=== PATIENT | male | born 1955 | race Caucasian/White ===

== ENCOUNTER 2023-01-08 00:06 | Emergency (ER) | payer MEDICARE, OTHER, SELFPAY ==
[2023-01-08 00:08] VITALS: BP 162/100; PULSE 114; RESP 19; TEMP 37.1; O2SAT 97; BMI 30.1
--- NOTE | 2023-01-08 00:39 | RAD_ITS ---
EXAM: XR LEFT RIBS AND AP CHEST, 3 OR MORE VIEWS CLINICAL INDICATION: pain TECHNIQUE: Frontal and oblique views of the left ribs and frontal view of the chest. This report was created using [employer] report generation technology. COMPARISON: None. FINDINGS: LUNGS AND PLEURAL SPACES: No acute pulmonary infiltrates or pleural effusion. No pneumothorax. HEART: Heart size is upper normal with normal pulmonary vasculature. MEDIASTINUM: Central airways and mediastinal contour are unremarkable. BONES/JOINTS: Old/well-healed fracture of the anterior left sixth rib. Acute nondisplaced fracture of the anterolateral left fifth rib and sixth ribs, as noted on 2 of the oblique views. Lower thoracic degenerative spurring. VASCULATURE: The thoracic aorta is mildly elongated. RAD/Ribs Uni Min 3V w/PA Chest IMPRESSION: Acute left fifth and sixth rib fractures. No pneumothorax or hemothorax. Electronically Signed: Morteza Beverly MD at 1:34 EDT ,
[2023-01-08] MEDS: Lidocaine 5% Patch 1 PATCH TOPICAL (00:46)
--- NOTE | 2023-01-08 00:58 | EDS_ITS ---
HPI HPI - Fall History of Present Illness Chief Complaint: Fall Narrative Narrative: 67-year-old male presenting with left rib pain. Patient states he was standing on a stepstool trying to change a light and fell injuring his left ribs. He states that he is having spasms in the ribs. He denies shortness of breath. Patient states he does not use analgesia anymore. He does not note any bruising. He does not think he broke any ribs. PFSH PFSH Medical History no medical history Home Medications lidocaine 5 % topical patch 1 patch topical DAILY #15 ea 01/08/23 [Rx Last Taken Unknown] loratadine 10 mg tablet (Claritin) 10 mg PO DAILY 01/08/23 [History Last Taken Unknown] Allergy/AdvReac Type Severity Reaction Status Date / Time pollen extracts [pollens] Allergy Other Verified 01/08/23 00:11 Social History Smoking Status: Never smoker ROS ROS ED Constitutional Constitutional ED: Denies chills, fever(s) or sweats Eyes Eyes: Denies blurry vision or change in vision ENT ENT ED: Denies ear pain or sore throat Cardiovascular Cardiovascular: Reports other; Denies chest pain, palpitations or racing heartbeat Respiratory/Chest Respiratory/Chest: Reports other Details: Left rib pain ; Denies cough, dyspnea or sputum Gastrointestinal Gastrointestinal: Denies abdominal pain, constipation, diarrhea, nausea or vom iting Genitourinary Genitourinary ED: Denies dysuria, hematuria or urinary frequency Musculoskeletal Musculoskeletal: Denies arthralgias, myalgias or neck pain Integumentary Denies abscess, Abrasions or rash Neurologic Neurologic: Denies headache(s), paresthesias or weakness Psychiatric Psychiatric: Denies anxiety, depression, suicidal ideation or suicidal thoughts Endocrine Endocrinology: Denies polydipsia or polyuria EXAM Physical Exam Const Vital Signs: 01/08/23 00:08 01/08/23 00:13 Temperature 98.7 F Temperature Source Temporal Pulse Rate 114 H Respiratory Rate 19 H Respiratory Effort Normal Blood Pressure 162/100 H Blood Pressure Mean 120 Pulse Ox 97 Oxygen Delivery Method Room Air Room Air Positive well nourished General Appearance ED: NAD HEENT Reports normocephalic atraumatic Chest Wall Chest Narrative: Tenderness to palpation over left ribs in the mid axillary line. No crepitance, deformity. Equal symmetric breath sounds and chest wall rise. Resp normal respiratory effort and no retractions Cardio regular rate and regular rhythm GI non-tender Neuro oriented x3 and CN's II-XII intact bilaterally Motor Exam: strength 5/5 throughout Psych mental status grossly normal MDM MDM MDM Narrative Medical decision making narrative: Patient states that he does not take oral analgesia. He states he is given this up. He was amenable to a Lidoderm patch. I did obtain a left rib series. On my interpretation there is a left fifth and sixth rib fracture. No evidence of pneumonia, pneumothorax, hemothorax. Radiology interprets this and agrees. Kaise goodson feels improved with a Lidoderm patch. He declines any further analgesia. He states he only wants the Lidoderm patches for home. Return precautions were discussed. Impression: 1. Mechanical fall 2. Left fifth and sixth rib fractures Radiography Diagnostic Testing: Clinical Impression(s) from Imaging Studies Ribs w/Chest X-Ray 01/08/23 00:39 IMPRESSION: Acute left fifth and sixth rib fractures. No pneumothorax or hemothorax. Electronically Signed: Morteza Beverly MD at 1:34 EDT , Discharge Plan Triage Chief Complaint: Fall ED Provider: Stanislav Walker Dx/Rx/DC Orders Instructions: ED Mechanical Fall Prescriptions: New lidocaine 5 % adhesive patch,medicated 1 patch topical DAILY Qty: 15 0RF Rx Instructions: leave on most painful area for up to 12 hrs No Action loratadine [Claritin] 10 mg Tablet 10 mg PO DAILY Primary Care Provider: Care Physician,No Primary Referrals: Yuni Núñez DO [Med Staff - Active Staff] - 3-5 Days NOT,DEFINED [Non-Staff] - Disposition Disposition: Home, Self Care
[2023-01-08 01:59] VITALS: BP 151/97; PULSE 91; RESP 16; O2SAT 97
--- NOTE | 2023-01-08 03:13 | ED.RN ---
patient in the room sitting in a chair waiting on sister to pick him up. This RN enters room to let him know she was here, he was sitting in the chair, pale, diaphoretic and states he is dizzy and had blurred vision. Pt could not tell me when it started. Assisted patient into bed, groundwater monitoring technician applied, vitals and blood sugar obtain. All within normal limits. Dr Walker called to bedside, patient now stating he feels better that he is lying down. Staff ambulated patient down the hallway, patient did well and states he feels better and is ready to go home. Dr Walker agreeable to patient going home. pt assisted into wheelchair and taken out to [employer] vehicle.
[2023-01-08 03:21] LABS: Bedside Glucose 150 mg/dL (74-106)
== END 2023-01-08 03:20 | disposition home or self-care (01) ==
PROVIDERS: Emergency Provider Student in an Organized Health Care Education/Training Program; Visit Provider Student in an Organized Health Care Education/Training Program
DX: S22.42XA Multiple fractures of ribs, left side, initial encounter for closed fracture (principal); W08.XXXA Fall from other furniture, initial encounter
CPT/HCPCS: 71101; 82962; 99285

== ENCOUNTER 2023-08-17 08:05 | Outpatient (CLI) | payer MEDICARE, OTHER, SELFPAY ==
[2023-08-17 10:32] LABS: Absolute Lymphocyte Count 1.11 X10^3/uL (0.83-4.51); Basophil# 0.09 X10^3/uL; Basophil% 2.3 % (0-1); Eosinophil# 0.41 X10^3/uL; Eosinophils% 10.3 % (0-5); Hematocrit 48.3 % (40-54); Hemoglobin 16.1 g/dL (13.0-16.5); Lymphocyte # 1.11 X10^3/ul (0.83-4.51); Lymphocyte % 27.9 % (19-41); Mean Corp Hgb Conc 33.3 g/dL (32-36); Mean Corpuscular Hgb 30.5 pg (27.0-32.0); Mean Corpuscular Volume 91.5 fL (80-94); Mean Platelet Vol. 9.8 fl (6.2-12.0); Monocyte# 0.34 X10^3/uL; Monocyte% 8.5 % (0-10); NRBC Flagged by Analyzer 0 % (0-5); Neutrophil # 2.01 X10^3/uL (2.7-7.7); Neutrophil % 50.5 % (47-70); Platelet Count 257 K/mm3 (150-450); RBC Distribution Width CV 13.5 % (11.6-14.6); RBC Distribution Width SD 45.5 fl (35.1-43.9); Red Blood Count 5.28 M/mm3 (4.6-6.2)
[2023-08-17 11:17] LABS: AST(SGOT) 15 U/L (15-37); Alanine Aminotransfer ALT/SGPT 24 U/L (16-61); Albumin, Serum 3.5 g/dL (3.2-5.0); Alkaline Phosphatase 118 U/L (45-117); Anion Gap 6 (5-15); BUN 11 mg/dL (7-18); BUN/Creat Ratio 10.7 RATIO (10-20); Calcium,Total 8.7 mg/dL (8.5-10.1); Chloride 109 mmol/L (98-107); Cholesterol 251 mg/dL (200); Creatinine, Serum 1.03 mg/dL (0.70-1.30); EST Glomerular Filtration Rate 76 mL/min (>60); Est Glom Filt Rate - Afr Amer 92 mL/min (>60); Globulin 3.6 g/dL (2.2-4.2); Glucose 91 mg/dL (74-106); High Density Lipoprotein 60 mg/dL; Potassium 3.8 mmol/L (3.5-5.1); Protein, Total 7.1 g/dL (6.4-8.2); Sodium Level 142 mmol/L (136-145); Triglycerides 136 mg/dL; Very Low Density Lipoprotein 27 mg/dL (5-40)
== END 2023-08-17 23:59 | disposition home or self-care (01) ==
LOC: MFPLAB 08:08
PROVIDERS: PCP Family Medicine; Visit Provider Family Medicine
DX: R03.0 Elevated blood-pressure reading, without diagnosis of hypertension (principal)
CPT/HCPCS: 36415; 80053; 80061; 85025

== ENCOUNTER → 2025-02-17 | Outpatient (CLI) | payer MEDICARE, OTHER, SELFPAY ==
[2025-02-17 10:32] LABS: Absolute Lymphocyte Count 1.28 X10^3/uL (0.83-4.51); Absolute Neutrophil Count 2.2 X10^3/uL (2.0-7.7); Basophil% 2.3 % (0-1); Eosinophil# 0.37 X10^3/uL; Eosinophils% 8.5 % (0-5); Hematocrit 47.7 % (40-54); Hemoglobin 16.2 g/dL (13.0-16.5); Lymphocyte # 1.28 X10^3/ul (0.83-4.51); Lymphocyte % 29.4 % (19-41); Mean Corpuscular Hgb 30.8 pg (27.0-32.0); Mean Corpuscular Volume 90.7 fL (80-94); Mean Platelet Vol. 9.7 fl (6.2-12.0); Monocyte# 0.44 X10^3/uL; Monocyte% 10.1 % (0-10); NRBC Flagged by Analyzer 0 % (0-5); Neutrophil # 2.15 X10^3/uL (2.7-7.7); Neutrophil % 49.5 % (47-70); Platelet Count 244 K/mm3 (150-450); RBC Distribution Width CV 13.3 % (11.6-14.6); RBC Distribution Width SD 44.9 fl (35.1-43.9); Red Blood Count 5.26 M/mm3 (4.6-6.2); White Blood Count 4.4 K/mm3 (4.4-11.0)
[2025-02-17 11:14] LABS: ALB/GLOB Ratio 1.1 RATIO (0.9-2.4); AST(SGOT) 18 U/L (<=37); Alanine Aminotransfer ALT/SGPT 18 U/L (<=46); Albumin, Serum 3.7 g/dL (3.4-4.8); Alkaline Phosphatase 111 U/L (40-129); Anion Gap 11 (5-15); BUN 12 mg/dL (4-19); BUN/Creat Ratio 11.7 RATIO (10-20); Carbon Dioxide 23.8 mmol/L (21.0-32.0); Chloride 106 mmol/L (98-108); Cholesterol 256 mg/dL (<=200); Creatinine, Serum 0.99 mg/dL (0.70-1.20); EST Glomerular Filtration Rate 82 (>60); Globulin 3.4 g/dL (2.2-4.2); Glucose 95 mg/dL (70-99); High Density Lipoprotein 60 mg/dL; Low Density Lipoprotein Calc. 175 mg/dL; PSA,Total - Annual Screen 1.54 ng/mL (0.02-4.00); Potassium 4.3 mmol/L (3.3-5.1); Sodium Level 141 mmol/L (133-145); Triglycerides 103 mg/dL; Very Low Density Lipoprotein 21 mg/dL (5-40); cholesterol:hdl ratio screen 4.27
== END | disposition home or self-care (01) ==
LOC: MFPLAB 08:19
PROVIDERS: PCP Family Medicine; Referring Provider Family Medicine; Visit Provider Family Medicine
DX: E78.5 Hyperlipidemia, unspecified (principal); Z12.5 Encounter for screening for malignant neoplasm of prostate; I10 Essential (primary) hypertension
CPT/HCPCS: 36415; 80053; 80061; 84153; 85025; G0103

== ENCOUNTER → 2025-03-14 | Outpatient (CLI) | payer MEDICARE, OTHER, SELFPAY ==
--- NOTE | 2025-03-13 16:30 | LES_PTH ---
PATIENT: NATIVIDAD GALLARDO LOC: [facility] U#:[id number] AGE/SX: 69/M ROOM: RE03/14/[address]: Dr. Hugo Guidry MD : 1955 BED: DIS: 03/14/2025 SPEC #: [id number] RECD: 03/13/25 17:48 STATUS: REI REGilbert #: [id number] CONNIE: 03/13/25 16:[address]: Hugo Guidry DEPT: SURGICAL PATHOLOGY RECD BY: Oumar Santana ENTERED: 03/14/25 09:16 SP TYPE: Lesion OTHR DR: Analia Nunn MD Tissues: A - Skin of face, NOS B - Skin of face, NOS Procedures: Surgery Specimen Level IV HEADER OPERATION: Biopsy right cheek lesions PRE-OP DIAGNOSIS: Right cheek lesions TISSUE SUBMITTED: A- Right cheek lesion, B- Right cheek lesion MICROSCOPIC DIAGNOSIS A. Right cheek lesion #1, biopsy: * Basal cell carcinoma, involving the surgical margin. B. Right cheek lesion #2, biopsy: * Basal cell carcinoma closely approaching the surgical margin. MICROSCOPIC DESCRIPTION Slides are reviewed. GROSS DESCRIPTION Received in 2 formalin containers labeled with patient's name and date of .? Designated as: A.? #1 right cheek lesion is a 0.5 x 0.3 x 0.2 cm tam portion of skin, devoid of orientation.? The surgical margin is inked black, the specimen is bisected and entirely submitted in 1 cassette. B.? #2 right cheek lesion is a 0.3 x 0.2 x 0.2 cm tam to erythematous, irregular skin fragment.? A definitive surgical margin is unable to be determined.? Submitted in toto in 1 cassette. [place] 03/14/2025 CPT:41089u1
== END | disposition home or self-care (01) ==
LOC: LABSPEC 09:08
PROVIDERS: PCP Family Medicine; Referring Provider Surgery Plastic and Reconstructive Surgery; Visit Provider Surgery Plastic and Reconstructive Surgery
DX: C44.319 Basal cell carcinoma of skin of other parts of face (principal)
CPT/HCPCS: 88305